=== PATIENT | female | born 1975 | race Caucasian/White ===

== ENCOUNTER → 2025-04-19 13:38 | Outpatient (REF) | payer BC, SELFPAY | LOC: CPAP 13:38 | PROVIDERS: ATTENDING PHYSICIAN Obstetrics & Gynecology | DX: Z01.419 Encounter for gynecological examination (general) (routine) without abnormal findings (principal); Z11.51 Encounter for screening for human papillomavirus (HPV) | CPT/HCPCS: 87624 ==